=== PATIENT | female | born 1995 | race African-American/Black ===

== ENCOUNTER 2019-03-28 15:27 | Emergency (ER) | payer MEDICAID ==
[~2019-03-28] VITALS: Ht 162.6 cm; Wt 56.0 kg
[2019-03-28 15:47] VITALS: BP 117/47
--- NOTE | 2019-03-28 17:27 | NUR ---
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
--- NOTE | 2019-03-28 17:47 | NUR ---
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
--- NOTE | 2019-03-28 18:09 | NUR ---
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
== END 2019-03-28 18:11 | disposition left against medical advice (07) ==
LOC: ED 18:05
DX: Z53.21 Procedure and treatment not carried out due to patient leaving prior to being seen by health care provider (principal)

== ENCOUNTER 2020-11-17 19:59 | Emergency (ER) | payer MEDICAID ==
[~2020-11-17] VITALS: Ht 162.6 cm; Wt 55.7 kg
[2020-11-17 20:32] VITALS: BP 116/80
[2020-11-17] MEDS ORDERED: ACETAMINOPHEN 500 MG TABLET ONE (21:50)
[2020-11-17] MEDS ORDERED: ACETAMINOPHEN 500 MG TABLET PO ONE (22:00)
--- NOTE | 2020-11-17 22:38 | NUR ---
DC EDUCATION PROVIDED, PT DEMONSTRATES UNDERSTANDING. PT AMBULATED STEADILY TO DC W RN AND FAMILY
== END 2020-11-17 22:39 ==
LOC: ED 22:30
DX: S16.1XXA Strain of muscle, fascia and tendon at neck level, initial encounter (principal); M25.519 Pain in unspecified shoulder; V49.19XA Passenger injured in collision with other motor vehicles in nontraffic accident, initial encounter; Y93.89 Activity, other specified; Y92.410 Unspecified street and highway as the place of occurrence of the external cause; Y99.8 Other external cause status
CPT/HCPCS: 99282